=== PATIENT | male | born 1950 | race Two or more races ===

== ENCOUNTER 2022-03-18 07:24 | Emergency (ER) | payer OTHER, MEDICAID ==
[~2022-03-18] VITALS: Ht 170.2 cm; Wt 100.0 kg
[2022-03-18 07:43] VITALS: BP 152/89
[2022-03-18 08:32] LABS: HEMATOCRIT. 35.2 % (42.0-52.0); HEMOGLOBIN. 11.7 g/dL (14.0-18.0); MEAN CORPUSCULAR HEMOGLOBIN 29.3 pg (28.0-32.0); MEAN CORPUSCULAR VOLUME 88.2 fL (80.0-94.0); MEAN PLATELET VOLUME 8.4 fl (7.4-10.4); PLATELET 233 x1000/uL (130-400); RED CELL DISTRIBUTION WIDTH 14.6 % (11.6-14.6)
[2022-03-18 08:44] LABS: CHLORIDE 108 mEq/L (98-107)
[2022-03-18 08:53] LABS: CLARITY URINE CLEAR (CLEAR); COLOR URINE YELLOW (YELLOW); KETONES URINE NEGATIVE (NEGATIVE); LEUKOCYTE ESTERASE URINE TRACE (NEGATIVE); NITRITE URINE NEGATIVE (NEGATIVE); OCCULT BLOOD URINE 2+ (NEGATIVE); PROTEIN URINE 2+ (NEGATIVE); SPECIFIC GRAVITY URINE 1.015 (1.005-1.030)
[2022-03-18 08:55] LABS: PLATELET ESTIMATE NORMAL
[2022-03-18] MEDS ORDERED: CIPR250T4 MT (09:47)
[2022-03-18] MEDS ORDERED: TAMS-11 MT (09:47)
== END 2022-03-18 10:00 | disposition home or self-care (01) ==
LOC: ER 07:24
DX: R33.9 Retention of urine, unspecified (principal); N30.90 Cystitis, unspecified without hematuria; E11.9 Type 2 diabetes mellitus without complications; I10 Essential (primary) hypertension
CPT/HCPCS: 36415; 51702; 80053; 81003; 85025; 99283; 99284; A4315